=== PATIENT | female | born 1950 | race Caucasian/White ===

== ENCOUNTER → 2017-07-07 | Day surgery (SDC) | payer MEDICARE ==
[~2017-07-07] MED LIST: ALDACTONE50 MG PO; ALLEGRA ALLERG180 MG PO; BUSPIRONE HCL5 MG PO; CELEBREX200 MG PO; CYCLOBENZAPRINE10 MG PO; CYMBALTA20 MG PO; DEPAKENE250 MG PO; DICYCLOMINE HCL10 MG PO; DIOVAN160 MG PO; ESIDRIX25 MG PO; ETOMIDATE 2 MG/ML 10 ML INJ IV ONE; FENTANYL CITRATE/PF 100MCG/2 ML INJ ONE; FOLIC ACID1 MG PO; FUROSEMIDE40 MG PO; GABAPENTIN300 MG PO; GABAPENTIN400 MG PO; GABAPENTIN600 MG PO; GLIMEPIRIDE2 MG PO; GLIMEPIRIDE4 MG PO; HUMALOG100 UNIT/1 SQ; HYDROCODON-ACE1 EAC9 PO; HYDROXYZINE HCL25 MG PO; IMODIUM2 MG PO; KEPPRA1000 MG PO; LABETALOL HCL100 MG PO; LANTUS 3ML100 UNITS/ SQ; LASIX20 MG PO; LEVOTHYROXINE150 MCG PO; LEVOTHYROXINE88 MCG PO; LISINOPRIL5 MG PO; MACRODANTIN100 MG PO; MIDAZOLAM HCL 2 MG/2 ML VIAL ONE; MORPHINE SULFAT15 M1 PO; NORCO 10-325 T1 EACH PO; NOVOLIN 70100 UNITS/ SC; NOVOLOG100 UNIT/1 SC; OMEPRAZOLE40 MG PO; PANTOPRAZOLE SO40 MG PO; POTASSIUM CHLO20 ME1 PO; SIMETHICONE 40 MG/0.6 ML BTL ONE; SUCRALFATE1 GM PO; VIMPAT100 MG PO; ZYRTEC10 MG PO
--- OUTSIDE RECORDS SUMMARY | 2017-07-07 11:19 | XMS REPORT | Clinical Summary ---
Author Author [facility] Address Unknown Phone Unavailable Care Team Providers Care Game Advisor Name Role Phone Phuc Mclaughlin MD PCP Unavailable Allergies Active Allergy Reactions Severity Noted Date Comments Amlodipine Swelling 08/21/2016 Penicillins Rash, Hives Low 03/07/2009 Prednisone Rash Low 08/21/2016 Propofol Swelling 08/21/2016 Sertraline Rash Low 08/21/2016 Current Medications Prescription Sig. Disp. Refills Start End Date Status Date fexofenadine (FORTUNATO) Take 180 mg by mouth Active 180 MG tablet daily. HYDROcodone-acetaminophen Take 1 tablet by mouth Active (NORCO) 10-325 mg per every 6 (six) hours as tablet needed for moderate pain. busPIRone (BUSPAR) 5 MG Take 5 mg by mouth 3 Active tablet (three) times a day. DULoxetine (CYMBALTA) 20 Take 40 mg by mouth 2 Active MG capsule (two) times a day. folic acid (FOLVITE) 1 MG Take 1 mg by mouth daily. Active tablet gabapentin (NEURONTIN) Take 400 mg by mouth 3 Active 400 mg capsule (three) times a day. ipratropium-albuterol Take 3 mL by nebulization Active (DUO-NEB) 0.5-2.5 mg/mL 4 (four) times a day. nebulizer levETIRAcetam (KEPPRA) Take 1,000 mg by mouth 2 Active 1000 MG tablet (two) times a day. levothyroxine (SYNTHROID, Take 150 mcg by mouth Active LEVOXYL) 150 mcg tablet every morning. metoprolol tartrate Take 50 mg by mouth 2 Active (LOPRESSOR) 50 mg tablet (two) times a day. Only for BP > 130 tiZANidine (ZANAFLEX) 4 Take 4 mg by mouth Active MG tablet nightly. pantoprazole (PROTONIX) Take 40 mg by mouth Active 40 MG EC tablet daily. valsartan (DIOVAN) 320 MG Take 320 mg by mouth Active tablet daily. hydrALAZINE (APRESOLINE) Take 50 mg by mouth 3 Active 50 MG tablet (three) times a day. hydrOXYzine (ATARAX) 25 Take 25 mg by mouth 3 Active MG tablet (three) times a day as needed for itching. insulin ASPART (NovoLOG) Inject under the skin 3 Active 100 unit/mL injection (three) times a day before meals. Sliding scale insulin GLARGINE (LANTUS) Inject 20 Units under the Active 100 unit/mL injection skin 2 (two) times a day. (vial) bacitracin ointment Apply 1 application Active topically 2 (two) times a day. Applied on left great toe and left 2nd toe glimepiride (AMARYL) 2 MG Take 2 mg by mouth daily 05/06/19 Discontin tablet before breakfast. 18 ued dexamethasone (DECADRON) Take 1 tablet (2 mg 60 tablet 0 08/24/19 2 MG tablet total) by mouth every 12 17 17 (twelve) hours for 30 days. doxycycline (VIBRAMYCIN) Take 2 capsules (100 mg 40 capsule 0 09/04/19 50 MG capsule total) by mouth 2 (two) 17 17 times a day for 20 doses. Active Problems Problem Noted Date Trachea displaced 04/24/2017 Seizure disorder 08/22/2016 Tracheitis 08/21/2016 Tracheitis acute, with, obstruction 08/21/2016 Overview: Added automatically from request for surgery [id number] Anxiety disorder 10/20/2009 Diabetes mellitus 10/20/2009 Hypertension 10/20/2009 Hypothyroidism 10/20/2009 Encounters Date Type Specialty Care Team Description 04/24/2017 [facility] General Surgery Jeff Bailey, Trachea displaced - Encounter MD (Primary Dx); 05/06/2017 Kathia Dawson MD Type 2 diabetes mellitus with complication, with long-term current use of insulin; Secondary hypertension; Seizure disorder 04/24/2017 Anesthesia General Surgery Kiran Loco MD Event 04/24/2017 Procedure Pass General Surgery 04/24/2017 Surgery General Surgery Saloni Lockhart MD TRACHEOSTOMY REVISION 08/23/2016 Procedure Pass Gastroenterology 08/23/2016 Surgery Gastroenterology Brenda Mcneal MD BRONCHOSCOPY 08/21/2016 Emergency General Internal Medicine Zoltan Clark, Obstructive chronic - MD bronchitis without 08/24/2016 Juno Slaughter MD exacerbation (Primary Dx); Tracheitis; Tracheitis acute, with, obstruction 07/06/2016 Documentation Intensive Care Nayan Peña, SHARYN 06/20/2016 [facility] General Internal Medicine Physician, Emergency, MD - Encounter Giuseppe Soriano MD 07/18/2016 Juno Slaughter MD after 07/06/2016 Social History Tobacco Use Types Packs/Day Years Used Date Never Smoker Smokeless Tobacco: Never Used Alcohol Use Drinks/Week oz/Week Comments No Sex Assigned at Date Recorded Not on file Last Filed Vital Signs Vital Sign Reading Time Taken Blood Pressure 144/74 05/06/2017 3:55 PM VALUATION MANAGER Pulse 77 05/06/2017 3:55 PM VALUATION MANAGER Temperature 37 C (98.6 F) 05/06/2017 3:55 PM VALUATION MANAGER Respiratory Rate 17 05/06/2017 3:55 PM VALUATION MANAGER Oxygen Saturation 95% 05/06/2017 3:55 PM VALUATION MANAGER Inhaled Oxygen - - Concentration Weight 71.6 kg (157 lb 13.6 oz) 04/25/2017 4:00 AM VALUATION MANAGER Height 167.6 cm (5' 6") 04/25/2017 2:42 AM VALUATION MANAGER Body Mass Index 25.48 04/25/2017 4:00 AM VALUATION MANAGER Plan of Treatment Health Maintenance Due Date Last Done Comments FOOT EXAM 1959 OPHTHALMOLOGY EXAM 1959 URINE MICROALBUMIN 1959 COLONOSCOPY 1999 MAMMOGRAM 1999 ZOSTER VACCINE 2009 PNEUMOCOCCAL 2014 POLYSACCHARIDE VACCINE AGE 65 AND OVER PNEUMOCOCCAL-13 2014 INFLUENZA VACCINE 10/22/2017 Procedures Procedure Name Priority Date/Time Associated Diagnosis Comments TRACHEOSTOMY REVISION 04/24/2017 TRACH DISLOCATION 10:30 AM VALUATION MANAGER BRONCHOSCOPY 08/23/2016 Tracheitis 12:15 PM CDT after 07/06/2016 Results * POC glucose (05/06/2017 4:31 PM) Only the most recent of 174 results within the time period is included. Component Value Ref Range POC glucose 199 (H) 65 - 99 mg/dL Comment: Meter ID: [id number] Room Attendant: Willi Bahena Specimen Performing Laboratory [facility] DEPARTMENT PATHOLOGY AND [facility] [address] [place] [address] * Estimated GFR (05/02/2017 4:54 AM) Only the most recent of 16 results within the time period is included. Component Value Ref Range GFR Non Af Amer >90 mL/min/1.73 m2 GFR Af Amer >90 mL/min/1.73 m2 Comment: Chronic kidney disease: <60 mL/min/1.73m2 Kidney failure: <15 mL/min/1.73m2 The estimated GFR is calculated from the IDMS-traceable Modification of Diet in Renal Disease Equation. The accuracy of the calculation is poor when the creatinine is normal. Calculated values >90 mL/min/1.73m2 are not reported. This equation has not been validated in children (<18 years), women, the elderly (>70 years), or ethnic groups other than Caucasians and Americans. Specimen Performing Laboratory Plasma specimen [facility] PATHOLOGY AND [address] [place] [place] [address] * Basic metabolic panel (05/02/2017 4:54 AM) Only the most recent of 13 results within the time period is included. Component Value Ref Range Sodium 135 135 - 148 mEq/L Potassium 3.5 3.5 - 5.0 mEq/L Chloride 100 98 - 112 mEq/L CO2 25 24 - 31 mEq/L Anion gap 10 7 - 15 mEq/L Comment: Starting from June , anion gap calculation no longer incorporates potassium. Please note the change. BUN 6 (L) 8 - 23 mg/dL Creatinine 0.4 (L) 0.5 - 0.9 mg/dL Glucose 237 (H) 65 - 99 mg/dL Calcium 8.9 8.8 - 10.2 mg/dL Specimen Performing Laboratory Plasma specimen [facility] PATHOLOGY AND [address] [place] [place] [address] * Procalcitonin (04/27/2017 5:19 AM) Component Value Ref Range Procalcitonin <0.07 <=0.10 ng/mL Comment: INTERPRETIVE INFORMATION: Procalcitonin PCT greater than 2.00 ng/mL: PCT levels above 2.00 ng/mL on the first day of ICU admission represent a high risk for progression to severe sepsis and/or septic shock. PCT less than 0.50 ng/mL: PCT levels below 0.50 ng/mL on the first day of ICU admission represent a low risk for progression to severe sepsis and/or septic shock. If the PCT measurement is performed shortly after the systemic infection process has started (usually less than 6 hours), these values may still be low. As various non-infectious conditions are known to induce PCT as well, PCT levels between 0.5 ng/mL and 2.0 ng/mL should be reviewed carefully to take into account the specific clinical back-ground and condition(s) of the individual patient. Performed at: [facility] [address] [place] [id number] Specimen Performing Laboratory Serum [facility] [address] [place] [address] * CBC with platelet and differential (04/27/2017 5:19 AM) Only the most recent of 11 results within the time period is included. Component Value Ref Range WBC 6.64 4.50 - 11.00 k/uL RBC 3.97 (L) 4.20 - 5.50 m/uL HGB 10.5 (L) 12.0 - 16.0 g/dL HCT 31.4 (L) 37.0 - 47.0 % MCV 79.1 (L) 82.0 - 100.0 fL MCH 26.4 (L) 27.0 - 34.0 pg MCHC 33.4 31.0 - 37.0 g/dL RDW - SD 38.6 37.0 - 55.0 fL MPV 10.0 8.8 - 13.2 fL Platelet count 126 (L) 150 - 400 k/uL Nucleated RBC 0.00 /100 WBC Neutrophils 51.8 39.0 - 69.0 % Lymphocytes 32.7 25.0 - 45.0 % Monocytes 11.3 (H) 0.0 - 10.0 % Eosinophils 2.9 0.0 - 5.0 % Basophils 0.8 0.0 - 1.0 % Immature granulocytes 0.5Comment: "Immature granulocytes" 0.0 - 1.0 % (promyelocytes, myelocytes, metamyelocytes) Specimen Performing Laboratory Blood [facility] DEPARTMENT OF PATHOLOGY AND GENOMIC MEDICINE [address] [place] [address] * Phosphorus level (04/27/2017 5:19 AM) Only the most recent of 5 results within the time period is included. Component Value Ref Range Phosphorus 3.3 2.4 - 4.5 mg/dL Specimen Performing Laboratory Plasma specimen [facility] DEPARTMENT PATHOLOGY [facility] [id number] [place] [address] [place] [address] * Magnesium level (04/27/2017 5:19 AM) Only the most recent of 5 results within the time period is included. Component Value Ref Range Magnesium 1.6 1.6 - 2.4 mg/dL Specimen Performing Laboratory Plasma specimen [facility] PATHOLOGY [address] [place] [address] * Blood culture, aerobic & anaerobic (04/25/2017 3:38 PM) Only the most recent of 4 results within the time period is included. Component Value Ref Range Blood culture isolate No growth after 5 days of incubation. Comment: Specimen Information Specimen Source: Blood Specimen Site: [facility] Specimen Performing Laboratory Blood [facility] DEPARTMENT OF PATHOLOGY AND [facility] MEDICINE [address] [place] [address] * Arterial blood gas (04/24/2017 11:55 PM) Component Value Ref Range pH, arterial 7.43 7.35 - 7.45 pCO2, arterial 43 35 - 45 mmHg pO2, arterial 97 (H) 80 - 90 mmHg Bicarbonate, arterial 27.6 21.0 - 28.0 mmol/L Base excess, arterial 4 (H) -2 - 2 mEq/L O2 saturation, arterial 98 95 - 100 % FiO2, inspired O2% 28 % Specimen Performing Laboratory Blood [facility] PATHOLOGY [address] [place] [address] * Troponin (04/24/2017 11:54 PM) Component Value Ref Range Troponin <0.300 0.000 - 0.300 ng/mL Comment: 0.30 - 1.49 ng/ml May indicate increased risk of acute coronary syndrome. >=1.5 ng/ml Consistent with acute myocardial infarction. The diagnostic value of a single normal or non-diagnostic result is questionable. Serial samples at 2-6 hour intervals are required to rule out acute myocardial injury. Specimen Performing Laboratory Plasma specimen [facility] PATHOLOGY [facility] [address] [place] [address] * Lactic acid level (04/24/2017 11:54 PM) Component Value Ref Range Lactic acid 1.3 0.5 - 2.2 mmol/L Specimen Performing Laboratory Plasma specimen [facility] DEPARTMENT OF PATHOLOGY AND GENOMIC MEDICINE [id number] [place] [address] [place] [address] * XR Chest 1 Vw Portable (04/24/2017 2:15 PM) Only the most recent of 8 results within the time period is included. Specimen Performing Laboratory [facility] [address] [place] [address] Narrative EXAMINATION: Portable chest x-ray CLINICAL HISTORY:trach placementr u pneumothorax COMPARISON: Most recent available chest x-ray earlier the same day. A tracheostomy tube tip is located in the proximal trachea. Mediastinum is within normal limits. There are degenerative changes in the dorsal spine. IMPRESSION: 1.The lungs are clear. There is no pneumothorax. 2.A small focus of atelectasis described on the prior chest x-ray in the left lung base has cleared. [facility]-[id number] Procedure Note Interface, Radiology Results Incoming - 04/24/2017 3:32 PM VALUATION MANAGER EXAMINATION: Portable chest x-ray CLINICAL HISTORY: trach placement r u pneumothorax COMPARISON: Most recent available chest x-ray earlier the same day. A tracheostomy tube tip is located in the proximal trachea. Mediastinum is within normal limits. There are degenerative changes in the dorsal spine. IMPRESSION: 1. The lungs are clear. There is no pneumothorax. 2. A small focus of atelectasis described on the prior chest x-ray in the left lung base has cleared. [facility]-[id number] * Thyroid stimulating hormone (04/24/2017 1:13 PM) Component Value Ref Range TSH 2.55 0.27 - 4.20 uIU/mL Specimen Performing Laboratory Plasma specimen [facility] DEPARTMENT OF PATHOLOGY AND GENOMIC MEDICINE [address] [place] [address] * Hemoglobin A1c (04/24/2017 1:13 PM) Component Value Ref Range Hemoglobin A1C 7.9 (H) 4.0 - 6.0 % Comment: Less than 6% - Goal of therapy for Type II Diabetes Less than 7%- Goal of therapy for Type I Diabetes Less than 8%- Acceptable control for Type I or Type II Diabetes Greater than 8%- Unacceptable control; action indicated. (A [id number]) Specimen Performing Laboratory Blood [facility] OF PATHOLOGY AND [facility] MEDICINE [address] [place] [address] * Lipid panel (04/24/2017 1:13 PM) Component Value Ref Range Cholesterol 98 <200 mg/dL Triglycerides 67 <150 mg/dL HDL cholesterol 21 (L) >40 mg/dL LDL cholesterol 64Comment: Result obtained by direct LDL <100 mg/dL measurement Lipid panel SeeBelow interpretation Comment: Total Cholesterol (mg/dL) <200 Desirable 200-239 Borderline-high >=240 High Triglycerides (mg/dL) <150 Normal 150-199 Borderline-high 200-499 High >=500 Very high HDL Cholesterol (mg/dL) <40 Low (male) <40 Low (female) LDL Cholesterol (mg/dL) <100 Optimal 100-129 Near or above optimal 130-159 Borderline-high 160-189 High >=190 Very high Risk Catergories that modify LDL goals. Risk Catergories LDL goal (mg/dL) CHD and CHD risk equivalent <100 (10-year risk >20%) Multiple (2+) risk factors <130 (10-year risk=<20%) 0-1 risk factors <160 (<10-year risk) Defining levels of lipids in metabolic syndrome Triglycerides >=150 mg/dL HDL Cholesterol Men <40 mg/dL Women <40 mg/dL Non-HDL cholesterol is a second target for therapy in persons with high triglycerides (>=200 mg/dL) Specimen Performing Laboratory Plasma specimen [facility] DEPARTMENT OF PATHOLOGY AND [facility] MEDICINE [address] [place] [address] * ECG 12 lead (04/24/2017 9:10 AM) Component Value Ref Range Ventricular rate 96 Atrial rate 96 IL interval 184 QRSD interval 88 QT interval 358 QTC interval 452 P axis 1 65 QRS axis 1 39 T wave axis 62 EKG impression ^^^ Poor data quality, interpretation may be adversely affected-Normal sinus rhythm-Normal ECG-In automated comparison with ECG of 19-JUN-2016 21:22,-Previous ECG has undetermined rhythm, needs review-Nonspecific T wave abnormality now evident in Anterior leads-Nonspecific T wave abnormality no longer evident in Lateral leads- Specimen Performing Laboratory [facility] MUSE [address] [place] [address] * Prothrombin time with INR (04/24/2017 8:36 AM) Only the most recent of 3 results within the time period is included. Component Value Ref Range Prothrombin time 15.2 (H) 12.0 - 15.0 sec INR 1.2 Comment: The International Normalized Ratio (INR) is a therapeutic monitoring tool for patients who are stable on oral anticoagulant therapy. An INR of 2.0-3.0 is suggested for deep vein thrombosis/pulmonary embolism. Specimen Performing Laboratory Blood [facility] DEPARTMENT OF PATHOLOGY AND GENOMIC MEDICINE [id number] [place] [address] [place] [address] * Comprehensive metabolic panel (04/24/2017 8:36 AM) Only the most recent of 3 results within the time period is included. Component Value Ref Range Sodium 136 135 - 148 mEq/L Potassium 4.0 3.5 - 5.0 mEq/L Chloride 95 (L) 98 - 112 mEq/L CO2 28 24 - 31 mEq/L Anion gap 13 7 - 15 mEq/L Comment: Starting from June , anion gap calculation no longer incorporates potassium. Please note the change. BUN 10 8 - 23 mg/dL Creatinine 0.4 (L) 0.5 - 0.9 mg/dL Glucose 160 (H) 65 - 99 mg/dL Calcium 9.9 8.8 - 10.2 mg/dL Protein 7.2 6.3 - 8.3 g/dL Comment: [place] 4.6-7.0 g/dL 1 week 4.4-7.6 g/dL 7 months-1year 5.1-7.3 g/dL 1-2 years 5.6-7.5 g/dL >3 years 6.0-8.0 g/dL 18-150 6.3-8.3 g/dL Albumin 3.7 3.5 - 5.0 g/dL A/G ratio 1.1 0.7 - 3.8 Alkaline phosphatase 73 35 - 104 U/L AST 14 10 - 35 U/L ALT 14 5 - 50 U/L Total bilirubin 0.4 0.0 - 1.2 mg/dL Specimen Performing Laboratory Plasma specimen [facility] DEPARTMENT OF PATHOLOGY AND GENOMIC MEDICINE [address] [place] [address] * XR Neck Soft Tissue (04/24/2017 4:08 AM) Specimen Performing Laboratory [facility] [address] [place] [address] Narrative EXAMINATION:XR NECK SOFT TISSUE CLINICAL HISTORY:trach tube displaced COMPARISON:None IMPRESSION: Per clinical history, tracheostomy tube has been displaced. No tracheostomy tube is seen on this exam. No radiopaque foreign bodies are seen. No acute osseous abnormalities. Moderate degenerative change of cervical spine is identified, with 3 mm anterolisthesis of C4 on C5. There is 4 mm retrolisthesis of C5 on C6. [id number] Procedure Note Interface, Radiology Results Incoming - 04/24/2017 4:50 AM VALUATION MANAGER EXAMINATION: XR NECK SOFT TISSUE CLINICAL HISTORY: trach tube displaced COMPARISON: None IMPRESSION: Per clinical history, tracheostomy tube has been displaced. No tracheostomy tube is seen on this exam. No radiopaque foreign bodies are seen. No acute osseous abnormalities. Moderate degenerative change of cervical spine is identified, with 3 mm anterolisthesis of C4 on C5. There is 4 mm retrolisthesis of C5 on C6. [id number] * XR Chest 1 Vw (04/24/2017 3:38 AM) Only the most recent of 2 results within the time period is included. Specimen Performing Laboratory [facility] [address] [place] [address] Narrative EXAMINATION:XR CHEST 1 VW CLINICAL HISTORY:trach tube displaced COMPARISON:08/21/2016 IMPRESSION: Linear atelectasis/scarring is seen of left lung base. No consolidations, effusions, or pneumothorax. Cardiomediastinal silhouette is within normal limits. No acute osseous abnormalities. [facility]-[id number] Procedure Note Interface, Radiology Results Incoming - 04/24/2017 3:43 AM VALUATION MANAGER EXAMINATION: XR CHEST 1 VW CLINICAL HISTORY: trach tube displaced COMPARISON: 08/21/2016 IMPRESSION: Linear atelectasis/scarring is seen of left lung base. No consolidations, effusions, or pneumothorax. Cardiomediastinal silhouette is within normal limits. No acute osseous abnormalities. [id number] * Respiratory culture (08/23/2016 12:06 PM) Only the most recent of 2 results within the time period is included. Component Value Ref Range Respiratory culture Normal oral marielena isolated. isolate Comment: Specimen Information Specimen Source: Bronchial Washing Specimen Site: Other Specimen Performing Laboratory Bronchial washing - Other [facility] DEPARTMENT OF PATHOLOGY AND GENOMIC MEDICINE [address] [place] [address] * Gram stain (08/23/2016 12:06 PM) Only the most recent of 3 results within the time period is included. Component Value Ref Range Gram stain isolate Moderate WBC's No organisms seen Comment: Specimen Information Specimen Source: Bronchial Washing Specimen Site: Other Specimen Performing Laboratory Bronchial washing - Other [facility] DEPARTMENT OF PATHOLOGY AND GENOMIC MEDICINE [address] [place] [address] * Sputum culture (08/21/2016 10:50 PM) Component Value Ref Range Sputum culture isolate Normal oral marielena isolated. Comment: Specimen Information Specimen Source: Sputum Specimen Site: Expectorated Specimen Performing Laboratory Sputum - Expectorated [facility] [place] [address] * CT Soft Tissue Neck W Contrast (08/21/2016 7:24 PM) Specimen Performing Laboratory [facility] [address] [place] [address] Narrative EXAMINATION:CT SOFT TISSUE NECK W CONTRAST CLINICAL HISTORY:recent trachresp issues COMPARISON:None. TECHNIQUE: CT imaging was performed with iterative reconstruction technique and/ or automated exposure control to reduce radiation dose. Findings: There is a midline invagination of the skin inferior to the thyroid gland with fat stranding leading to the trachea likely due to prior tracheostomy. There is a 9 mm nodular thickening at the left posterior lateral aspect of the tracheal lumen at the level of the tracheostomy tract which may be due to granulation tissue. Mucosal lesion cannot be excluded. Recommend direct visualization. There is mild narrowing of the larynx just inferior to the vocal cords with some asymmetric soft tissue posteriorly left greater than right. This may be due to granulation tissue or mucosal lesion. Direct visualization is recommended. No drainable fluid collections. No lymphadenopathy in the neck by CT criteria. No focal lesions in the salivary glands. Thyroid gland is within normal limits. No aggressive bony lesions. IMPRESSION: Post tracheostomy findings as described. Nodular thickening in the trachea at the level of the tracheostomy without significant luminal narrowing. Mild subglottic narrowing due to soft tissue density. Direct visualization is recommended. [id number] Procedure Note [facility], Radiology Results Incoming - 08/21/2016 7:40 PM CDT EXAMINATION: CT SOFT TISSUE NECK W CONTRAST CLINICAL HISTORY: recent trach resp issues COMPARISON: None. TECHNIQUE: CT imaging was performed with iterative reconstruction technique and/ or automated exposure control to reduce radiation dose. Findings: There is a midline invagination of the skin inferior to the thyroid gland with fat stranding leading to the trachea likely due to prior tracheostomy. There is a 9 mm nodular thickening at the left posterior lateral aspect of the tracheal lumen at the level of the tracheostomy tract which may be due to granulation tissue. Mucosal lesion cannot be excluded. Recommend direct visualization. There is mild narrowing of the larynx just inferior to the vocal cords with some asymmetric soft tissue posteriorly left greater than right. This may be due to granulation tissue or mucosal lesion. Direct visualization is recommended. No drainable fluid collections. No lymphadenopathy in the neck by CT criteria. No focal lesions in the salivary glands. Thyroid gland is within normal limits. No aggressive bony lesions. IMPRESSION: Post tracheostomy findings as described. Nodular thickening in the trachea at the level of the tracheostomy without significant luminal narrowing. Mild subglottic narrowing due to soft tissue density. Direct visualization is recommended. [id number] * Partial thromboplastin time, activated (08/21/2016 6:00 PM) Only the most recent of 2 results within the time period is included. Component Value Ref Range PTT 34.7 23.0 - 36.0 sec Comment: PTT therapeutic range for unfractionated heparin is 61.0-112.0 seconds which corresponds to Anti-Xa 0.3-0.7 U/ml. Note: Change in Panic Value The PTT Panic Value is changing from 110 sec. to 100 sec. due to new instrumentation and reagents. Correlation studies have been performed to validate this result. Specimen Performing Laboratory Blood [facility] DEPARTMENT OF PATHOLOGY AND GENOMIC MEDICINE [address] [facility] [place], [place] [id number] * Type and screen (08/21/2016 6:00 PM) Component Value Ref Range ABO grouping O Rh type POS Antibody screen (gel) NEG Specimen Performing Laboratory Blood [facility] DEPARTMENT OF PATHOLOGY AND GENOMIC MEDICINE [address] [place] [address] * Lipase level (08/21/2016 6:00 PM) Component Value Ref Range Lipase 115 65 - 230 U/L Specimen Performing Laboratory Plasma specimen [facility] DEPARTMENT OF PATHOLOGY AND GENOMIC MEDICINE [address] [facility] [place] [address] * Hepatic function panel (08/21/2016 6:00 PM) Component Value Ref Range Albumin 3.2 3.2 - 5.0 g/dL Total bilirubin 0.5 0.2 - 1.2 mg/dL Bilirubin direct 0.2 0.0 - 0.4 mg/dL Alkaline phosphatase 71 30 - 120 U/L Protein 6.7 6.3 - 8.2 g/dL ALT 27 (L) 30 - 65 U/L AST 17 15 - 37 U/L Specimen Performing Laboratory Plasma specimen [facility] DEPARTMENT OF PATHOLOGY AND GENOMIC MEDICINE [place] [address] * Arterial blood gas, [facility] lab (07/15/2016 7:33 AM) Only the most recent of 5 results within the time period is included. Component Value Ref [employer] site lra O2 therapy TC pH, arterial 7.560 (HH)Comment: Called to Saba Corrales by tmg 7.350 - 7.450 units pCO2, arterial 33.5 (L) 35.0 - 45.0 mmHg pO2, arterial 87.2 80.0 - 90.0 mmHg O2 saturation, arterial 98.4 95.0 - 100.0 % Base excess, arterial 7.7 mEq/L Bicarbonate 30.0 (H) 21.0 - 28.0 mEq/L FiO2, inspired O2% 35.0 % Carboxyhemoglobin 1.0 0.0 - 1.4 % Comment: Reference Ranges: Carboxyhemoglobin Non smoker: 0.0 - 2.0% Smoker: 2.1 - 5.0% Heavy smoker: 5.1 - 9% Hemoglobin, blood gas 10.1 (L) 12.0 - 16.0 g/dL pO2, A-a 125.7 mmHg O2 content 61.5 VOL% Methemoglobin 0.0 0.0 - 1.0 % Specimen Performing Laboratory [facility] DEPARTMENT OF PATHOLOGY AND GENOMIC MEDICINE [place] [address] * Vancomycin level, trough (07/14/2016 10:08 AM) Component Value Ref Range Vancomycin, trough 7.3 (L) 10.0 - 20.0 ug/mL Comment: Therapeutic Ranges: Peak 30.0 - 40.0 ug/mL Trough 10.0 - 20.0 ug/mL Specimen Performing Laboratory [facility] DEPARTMENT OF PATHOLOGY AND GENOMIC MEDICINE [place] [address] * Ionized calcium (07/13/2016 5:27 AM) Only the most recent of 4 results within the time period is included. Component Value Ref Range pH 7.69 Ionized calcium 0.91 (L) 1.11 - 1.32 mmol/L Specimen Performing Laboratory [facility] DEPARTMENT OF PATHOLOGY AND GENOMIC MEDICINE [address] [place] [address] * Cytomegalovirus by PCR (07/11/2016 2:23 PM) Specimen Performing Laboratory Other [facility] DEPARTMENT OF PATHOLOGY AND GENOMIC MEDICINE [address] [place] [address] * Varicella zoster by PCR (07/11/2016 2:23 PM) Specimen Performing Laboratory Other [facility] DEPARTMENT OF PATHOLOGY AND GENOMIC MEDICINE [address] [place] [address] * Herpes simplex virus by PCR (07/11/2016 2:23 PM) Specimen Performing Laboratory Other [facility] DEPARTMENT OF PATHOLOGY AND GENOMIC MEDICINE [address] [place] [address] * Cytology (non-gynecological) request (07/11/2016 10:40 AM) Specimen Performing Laboratory Other [facility] DEPARTMENT OF PATHOLOGY AND GENOMIC MEDICINE [address] [place] [address] * Fungus smear (07/11/2016 8:15 AM) Component Value Ref Range Fungus smear No fungi observed. Specimen Performing Laboratory Other [facility] DEPARTMENT OF PATHOLOGY AND GENOMIC MEDICINE [address] [place] [address] Narrative Specimen Site is : RLL (Right Lower Lobe) Specimen Source is : Bronchial alveolar lavage * Respiratory pathogen panel (07/11/2016 8:15 AM) Component Value Ref Range Respiratory pathogen Negative for all pathogens tested: panel Negative for Adenovirus Negative for Coronavirus HKU1 Negative for Coronavirus NL63 Negative for Coronavirus 229E Negative for Coronavirus OC43 Negative for Human Metapneumovirus Negative for Rhinovirus/Enterovirus Negative for Influenza A Negative for Influenza A/H1 Negative for Influenza A/H3 Negative for Influenza A/H1-2009 Negative for Influenza B Negative for Parainfluenza Virus 1 Negative for Parainfluenza Virus 2 Negative for Parainfluenza Virus 3 Negative for Parainfluenza Virus 4 Negative for Respiratory Syncytial Virus Negative for Bordetella pertussis Negative for Chlamydophila pneumoniae Negative for Mycoplasma pneumoniae This real-time PCR assay detects the presence of nucleic acids (RNA or DNA) for the respiratory pathogens listed. A result of "Not-detected" does not exclude the possibility of the presence of one or more pathogens at concentrations less than the detectable limits of the assay. Specimen Performing Laboratory Other [facility] [address] Narrative Specimen Site is : RLL (Right Lower Lobe) Specimen Source is : Bronchial alveolar lavage * AFB culture (07/11/2016 8:15 AM) Component Value Ref Range AFB culture isolate No growth after 6 weeks of incubation. Specimen Performing Laboratory Other [facility] [place] [address] Narrative Specimen Site is : RLL (Right Lower Lobe) Specimen Source is : Bronchial alveolar lavage * AFB stain (07/11/2016 8:15 AM) Component Value Ref Range AFB stain No acid fast bacilli (AFB) seen. Specimen Performing Laboratory Other [place] [address] Narrative Specimen Site is : RLL (Right Lower Lobe) Specimen Source is : Bronchial alveolar lavage * Fungus culture (07/11/2016 8:15 AM) Component Value Ref Range Fungus culture isolate No growth after 4 weeks of incubation. Specimen Performing Laboratory Other [place] [address] Narrative Specimen Site is : RLL (Right Lower Lobe) Specimen Source is : Bronchial alveolar lavage * MRI Abdomen W Wo Contrast (07/07/2016 6:41 PM) Specimen [place] [address] Narrative PROCEDURE:MRI ABDOMEN WWO CONTRAST CLINICAL HISTORY:abnormal ct 1.5T ROUTINE PROTOCOL, A.A., 7.5CC GADAVIST, ABNORMAL CT, NO HX OF SX, CA, OR TRAUMA COMPARISON:None. Correlation is made with the recent CT scan of the abdomen performed June 20, 2016 TECHNIQUE: Pregadolinium: Multiplanar T1, T2, diffusion-weighted imaging, ADC map images were obtained pregadolinium. Following injection of intravenous gadolinium without adverse reaction: Multiple images in T1 weighted without and with fat suppression was obtained as well. Images were acquired on a 1.5 Emily Siemens magnet system. FINDINGS: 1. The liver contour is irregular consistent with cirrhosis. The liver measures 15.6 cm craniocaudal length by 20.4 cm transverse. Prominence of the caudate lobe is noted as was mentioned on the recent CT scan of June 20, 2016 No enlargement of the spleen is seen which measures 10.1 cm length by 4.3 cm transverse the hilum. Flow is demonstrated through the portal veins, splenic vein and superior mesenteric vein 2. A small right renal cortical cyst is present and measures 12 mm diameter. The remainder of the intra-abdominal solid organs are grossly unremarkable. 3. No enhancing lesions are demonstrated in the liver or remainder of the intra-abdominal solid organs. 4. The enteric tract is generally better evaluated with the enteric contrast study whether by fluoroscopy or by CT scanning. IMPRESSION: Abnormal study. Cirrhosis without portal hypertension or portal vein thrombosis. No focal lesions are identified in the liver. Small right renal cortical cyst. [facility]-[id number] . Procedure Note [facility], Radiology Conversion - 07/07/2016 7:59 PM CDT PROCEDURE: MRI ABDOMEN WWO CONTRAST CLINICAL HISTORY: abnormal ct 1.5T ROUTINE PROTOCOL, A.A., 7.5CC GADAVIST, ABNORMAL CT, NO HX OF SX, CA, OR TRAUMA COMPARISON: None. Correlation is made with the recent CT scan of the abdomen performed June 20, 2016 TECHNIQUE: Pregadolinium: Multiplanar T1, T2, diffusion-weighted imaging, ADC map images were obtained pregadolinium. Following injection of intravenous gadolinium without adverse reaction: Multiple images in T1 weighted without and with fat suppression was obtained as well. Images were acquired on a 1.5 Emily Siemens magnet system. FINDINGS: 1. The liver contour is irregular consistent with cirrhosis. The liver measures 15.6 cm craniocaudal length by 20.4 cm transverse. Prominence of the caudate lobe is noted as was mentioned on the recent CT scan of June 20, 2016 No enlargement of the spleen is seen which measures 10.1 cm length by 4.3 cm transverse the hilum. Flow is demonstrated through the portal veins, splenic vein and superior mesenteric vein 2. A small right renal cortical cyst is present and measures 12 mm diameter. The remainder of the intra-abdominal solid organs are grossly unremarkable. 3. No enhancing lesions are demonstrated in the liver or remainder of the intra-abdominal solid organs. 4. The enteric tract is generally better evaluated with the enteric contrast study whether by fluoroscopy or by CT scanning. IMPRESSION: Abnormal study. Cirrhosis without portal hypertension or portal vein thrombosis. No focal lesions are identified in the liver. Small right renal cortical cyst. [facility]-[id number] . * RPR (07/07/2016 6:36 AM) Component Value Ref Range RPR Non-reactive Non-reactive Specimen Performing Laboratory [facility] DEPARTMENT OF PATHOLOGY AND GENOMIC MEDICINE [address] [place] [address] * BRIAN (07/07/2016 6:36 AM) Component Value Ref Range BIRAN screen Not Detected Not-Detected Specimen Performing Laboratory [facility] DEPARTMENT OF PATHOLOGY AND GENOMIC MEDICINE [address] [place] [id number] * [place] Modified Barium Swallow (07/06/2016 3:14 PM) Specimen Performing Laboratory [facility] [address] [place] [address] Narrative EXAMINATION:MODIFIED BARIUM SWALLOW CLINICAL HISTORY:evaluate swallow ability COMPARISON:None. FINDINGS: The patient swallowed varying consistencies of barium under direct lateral fluoroscopic evaluation. The study was performed in conjunction with speech pathology. IMPRESSION: Patient had difficulty initiating swallowing mechanism. There was focal aspiration with nectar. There was some mild penetration with honey. The patient tolerated the diet. Fluoroscopy time:2.4 minutes number of fluoroscopic images obtained: 1 Total Dose4.59mGy Please refer to Speech Pathology report for further details. [id number] Procedure Note Interface, Radiology Conversion - 07/06/2016 3:32 PM CDT EXAMINATION: MODIFIED BARIUM SWALLOW CLINICAL HISTORY: evaluate swallow ability COMPARISON: None. FINDINGS: The patient swallowed varying consistencies of barium under direct lateral fluoroscopic evaluation. The study was performed in conjunction with speech pathology. IMPRESSION: Patient had difficulty initiating swallowing mechanism. There was focal aspiration with nectar. There was some mild penetration with honey. The patient tolerated the diet. Fluoroscopy time: 2.4 minutes number of fluoroscopic images obtained: 1 Total Dose 4.59 mGy Please refer to Speech Pathology report for further details. [id number] * C difficile toxin (07/06/2016 9:50 AM) Component Value Ref Range Clostridium difficile No Clostridium difficle toxin present toxin Specimen Performing Laboratory Other [facility] DEPARTMENT OF PATHOLOGY AND GENOMIC MEDICINE [address] [place] [address] Narrative Specimen Site is : : Nonpreserved Specimen Source is : Stool after 07/06/2016 Insurance Payer Benefit Subscriber ID Type Phone Address Plan / Group [employer] [facility] [facility] x[facility] Home:
[2017-07-07 12:22] LABS: BASOPHILS # (AUTO) 0.1 (0.0-0.1); BASOPHILS % 0.6 % (0.0-1.0); EOSINOPHILS # (AUTO) 0.2 (0.0-0.4); EOSINOPHILS % 1.8 % (0.0-6.0); HEMATOCRIT 34.3 % (34.2-44.1); HEMOGLOBIN 11.6 g/dL (12.0-16.0); LYMPHOCYTES # (AUTO) 2.2 (1.0-3.2); LYMPHOCYTES % 22.7 % (18.0-39.1); MEAN CORPUSCULAR HGB CONC 33.8 g/dL (31-35); MEAN CORPUSCULAR VOLUME 76.9 fL (81-99); MONOCYTES # (AUTO) 0.8 (0.2-0.8); MONOCYTES % 8.2 % (4.4-11.3); NEUTROPHILS # (AUTO) 6.5 (2.1-6.9); NEUTROPHILS % 66.4 % (38.7-80.0); PLATELET COUNT 60 x10e3/uL (140-360); RED BLOOD COUNT 4.46 x10e6/uL (3.6-5.1); RED CELL DISTRIBUTION WIDTH 13.8 % (11.7-14.4)
== END | disposition home or self-care (01) ==
LOC: OR 11:15
PROVIDERS: ATTEND Internal Medicine Gastroenterology
DX: K52.9 Noninfective gastroenteritis and colitis, unspecified (principal); K57.30 Diverticulosis of large intestine without perforation or abscess without bleeding; Z98.0 Intestinal bypass and anastomosis status; K64.8 Other hemorrhoids; E66.3 Overweight; R56.9 Unspecified convulsions; I69.851 Hemiplegia and hemiparesis following other cerebrovascular disease affecting right dominant side; I10 Essential (primary) hypertension; G47.33 Obstructive sleep apnea (adult) (pediatric); J45.909 Unspecified asthma, uncomplicated; E11.9 Type 2 diabetes mellitus without complications; E03.9 Hypothyroidism, unspecified; K74.60 Unspecified cirrhosis of liver; Z88.0 Allergy status to penicillin; Z88.8 Allergy status to other drugs, medicaments and biological substances; Z91.048 Other nonmedicinal substance allergy status; Z79.4 Long term (current) use of insulin; Z68.25 Body mass index [BMI] 25.0-25.9, adult; Z93.0 Tracheostomy status; Z80.0 Family history of malignant neoplasm of digestive organs
CPT/HCPCS: 36415; 45380; 82948; 85025; 93005; J2250; 45378